=== PATIENT | male | born 1960 | race Caucasian/White ===

== ENCOUNTER 2019-06-01 10:23 | Emergency (ER) | payer MEDICAID ==
[~2019-06-01] VITALS: Ht 177.8 cm; Wt 81.0 kg
[~2019-06-01 10:23] MED LIST: LIDOcaine 1% 30ml preserv. free vial ONE; MULT-785 PO
[2019-06-01 10:32] VITALS: BP 129/86
[2019-06-01] MEDS ORDERED: TETanus/Pertussis (Acell)/Diphther VAC/PF (Tdap-Adult) 0.5ml syringe IM ONE (12:05)
[2019-06-01] MEDS ORDERED: HYDR-3965 PO (12:21)
== END 2019-06-01 12:30 | disposition home or self-care (01) ==
LOC: ER 10:26
DX: S61.212A Laceration without foreign body of right middle finger without damage to nail, initial encounter (principal); Z79.899 Other long term (current) drug therapy; W23.0XXA Caught, crushed, jammed, or pinched between moving objects, initial encounter; Y93.89 Activity, other specified; Y92.89 Other specified places as the place of occurrence of the external cause; Y99.9 Unspecified external cause status
CPT/HCPCS: 12001; 73140; 90471; 90715; 99283; J2001

== ENCOUNTER 2022-09-08 20:16 | Emergency (ER) | payer SELFPAY ==
[~2022-09-08] VITALS: Ht 177.8 cm; Wt 90.0 kg
[~2022-09-08 20:16] MED LIST changes: -LIDOcaine 1% 30ml preserv. free vial ONE
[2022-09-08 20:37] VITALS: BP 155/98
== END 2022-09-09 02:28 | disposition left against medical advice (07) ==
LOC: ER 20:17
DX: L03.116 Cellulitis of left lower limb (principal); M79.662 Pain in left lower leg; R60.9 Edema, unspecified
CPT/HCPCS: 73552; 73590; 93971; 99284